=== PATIENT | male | born 1980 | race Caucasian/White ===

== ENCOUNTER 2020-04-26 07:54 | Emergency (ER) | payer MEDICAID, OTHER ==
[~2020-04-26] VITALS: Ht 182.9 cm; Wt 97.5 kg
--- NOTE | 2020-04-26 08:34 | NUR ---
patient was seen by . Urine sent to lab
[2020-04-26 09:03] LABS: BASOPHILS # (AUTO) 0.1 K/uL (0.0-8.0); BASOPHILS % (AUTO) 0.9 % (0.0-2.0); EOSINOPHILS # (AUTO) 0.3 K/uL (0.0-0.7); EOSINOPHILS % (AUTO) 5.1 % (0.0-7.0); HEMOGLOBIN 15.4 g/dL (12.5-16.3); LYMPHOCYTES # (AUTO) 2.3 K/uL (20.0-40.0); LYMPHOCYTES % (AUTO) 37.4 % (20.5-51.5); MEAN CORPUSCULAR HGB CONC 34 g/dL (32.5-36.3); MEAN CORPUSCULAR VOLUME 90.7 fL (73.0-96.2); MONOCYTES # (AUTO) 0.5 K/uL (2.0-10.0); MONOCYTES % (AUTO) 7.7 % (0.0-11.0); NEUTROPHILS % (AUTO) 48.9 % (38.5-71.5); PLATELET COUNT (AUTO) 191 K/uL (152-348); RED BLOOD CELL COUNT(AUTO) 4.96 MIL/uL (4.06-5.63); WHITE BLOOD COUNT (AUTO) 6.1 K/uL (3.6-10.2)
[2020-04-26 09:08] LABS: POTASSIUM 4.1 mmol/L (3.5-5.1)
[2020-04-26 09:13] LABS: BILIRUBIN,DIRECT 0.1 mg/dL (0.0-0.2); BILIRUBIN,TOTAL 0.4 mg/dL (0.2-1.0); TOTAL PROTEIN, SERUM 7.6 g/dL (6.4-8.2)
--- NOTE | 2020-04-26 09:21 | NUR ---
Awaiting test results. patient is awake and alert with no new complaints. States does not want pain medicine right now
[2020-04-26 09:38] LABS: *BILIRUBIN,URIN NEGATIVE (NEGATIVE); *BLOOD, URINE NEGATIVE (NEGATIVE); *CLARITY,URINE CLEAR (CLEAR); *COLOR,URINE YELLOW (YELLOW); *KETONES,URINE NEGATIVE (NEGATIVE); *UROBILINOGEN,URINE 0.2 E.U./dl (NORMAL); LEUKOCYTE ESTERASE ,URINE NEGATIVE (NEGATIVE); NITRITE, URINE NEGATIVE (NEGATIVE); PH,URINE 6.5 (5.0-8.0); UGLUCOSE NEGATIVE (NEGATIVE)
--- NOTE | 2020-04-26 09:57 | NUR ---
Dr Sharma was at bedside speaking to patient about test results and plan of care
== END 2020-04-26 10:27 | disposition home or self-care (01) ==
LOC: ER 07:54
DX: K65.4 Sclerosing mesenteritis (principal); Z84.1 Family history of disorders of kidney and ureter
CPT/HCPCS: 36415; 83690; 85025; A4663

== ENCOUNTER 2020-11-06 20:28 | Emergency (ER) | payer OTHER ==
[~2020-11-06] VITALS: Ht 182.9 cm; Wt 99.8 kg
--- NOTE | 2020-11-06 20:50 | NUR ---
MD Machuca in room to do MSE.
[2020-11-06] MEDS ORDERED: HYDROCODONE/APAP 10-325 MG TABLET PO ONE (21:00)
[2020-11-06] MEDS ORDERED: ONDANSETRON ODT 4 MG TAB.RAPDIS SL ONE (21:00)
[2020-11-06] MEDS ORDERED: HYDROCODONE/APAP 10-325 MG TABLET ONE (21:02)
[2020-11-06] MEDS ORDERED: ONDANSETRON ODT 4 MG TAB.RAPDIS ONE (21:02)
--- NOTE | 2020-11-06 21:05 | NUR ---
dialysis biomed technician in room with patient.
[2020-11-06] MEDS ORDERED: HYDR-4209 PO (21:45)
[2020-11-06] MEDS ORDERED: LORA2TAB95 PO (21:45)
[2020-11-06] MEDS ORDERED: HYDROMORPHONE 1 MG/1 ML DISP.SYRIN IM ONE (22:00)
[2020-11-06] MEDS ORDERED: HYDROMORPHONE 1 MG/1 ML DISP.SYRIN ONE (23:22)
--- NOTE | 2020-11-06 23:50 | NUR ---
Patient discharged to home in stable condition. No signs of distress, vss. Written and verbal after care instructions given. Patient verbalizes understanding of instructions. Stressed follow up or return to ER for worsening s/s. Pt walks with steady gait, all belongings w/ pt.
[2020-11-06 23:52] VITALS: BP 132/69
== END 2020-11-06 23:53 | disposition home or self-care (01) ==
LOC: ER 20:30
DX: U07.1 COVID-19 (principal); R51.9 Headache, unspecified; F17.210 Nicotine dependence, cigarettes, uncomplicated
CPT/HCPCS: 71045; 87426; 96372; 99284; 99406; J1170; A4663; Q0162

== ENCOUNTER 2021-10-07 18:22 | Emergency (ER) | payer OTHER ==
[~2021-10-07] VITALS: Ht 182.9 cm; Wt 104.3 kg
[~2021-10-07 18:22] MED LIST: HYDR-4209 PO; LORA2TAB95 PO
--- NOTE | 2021-10-07 19:11 | NUR ---
DR. MORE AT BEDSIDE, MSE IN PROGRESS.
--- NOTE | 2021-10-07 19:26 | NUR ---
XRAY AT BEDSIDE.
[2021-10-07 19:39] LABS: HEMATOCRIT 40.1 % (36.7-47.1); MEAN CORPUSCULAR VOLUME 89.5 fL (73.0-96.2); PLATELET COUNT (AUTO) 183 K/uL (152-348)
[2021-10-07 20:00] LABS: ALANINE AMINOTRANSFERASE 88 U/L (16-63); ALKALINE PHOSPHATASE 57 U/L (50-136); ASPARTATE AMINOTRANSFERASE 44 U/L (15-37); BILIRUBIN,DIRECT 0.1 mg/dL (0.0-0.2); BILIRUBIN,TOTAL 0.4 mg/dL (0.2-1.0); CARBON DIOXIDE 27 mmol/L (21-32); CHLORIDE 105 mmol/L (98-107); CREATININE 1.1 mg/dL (0.6-1.3); GLUCOSE 88 mg/dL (74-106); POTASSIUM 4.1 mmol/L (3.5-5.1); TOTAL PROTEIN, SERUM 7.2 g/dL (6.4-8.2); UREA NITROGEN, BLOOD 11 mg/dL (7-18)
--- NOTE | 2021-10-07 21:30 | NUR ---
Patient discharged to home in stable condition. Written and verbal after care instructions given. Patient verbalizes understanding of instructions. Stressed follow up or return to ER for worsening s/s. Denies any pain/discomfort. No n/v. Denies BOLAND/dizzyness. Steady gait. No changes in LOC.
[2021-10-07 21:44] VITALS: BP 136/81
== END 2021-10-07 21:44 | disposition home or self-care (01) ==
LOC: ER 18:23
DX: R07.89 Other chest pain (principal); K76.0 Fatty (change of) liver, not elsewhere classified; F17.210 Nicotine dependence, cigarettes, uncomplicated
CPT/HCPCS: 36415; 71045; 83735; 84484; 85025; 93005; A4663